=== PATIENT | female | born 1965 | race Asian ===

== ENCOUNTER 2016-03-19 02:03 | Emergency (ER) | payer OTHER ==
[2016-03-19 02:17] VITALS: BP 127/87; PULSE 79; TEMP 97.7; BMI 32.3
[2016-03-19] MEDS ORDERED: diazePAM 5 MG TABLET PO ONE (02:51)
[2016-03-19] MEDS ORDERED: KETOROLAC TROMETHAMINE 60 MG/2 ML VIAL IM ONE (02:51)
[2016-03-19] MEDS ORDERED: KETOROLAC TROMETHAMINE 60 MG/2 ML VIAL ONE (03:05)
[2016-03-19] MEDS ORDERED: diazePAM 5 MG TABLET ONE (03:06)
--- NOTE | 2016-03-19 03:40 | PDOC ---
History of Present Illness - General Chief Complaint: Back Pain Stated Complaint: BACK PAIN,LEG PAIN Time Seen by Provider: 03/19/16 02:09 - History of Present Illness Initial Comments: 03/19/16 03:40 CHIEF COMPLAINT: back pain, leg pain HISTORY OF PRESENT ILLNESS: 50 yo F with history of HTN and disc herniation ( 1.5 years ago) presents to ED with back pain radiating down to R leg. The increased pain began a month ago and became more severe today. Patient took 600 mg ibuprofen at 10 pm with no relief. She states that the pain is worse than usual because it is usually relived by taking ibuprofen. She was seen by an orthopedist 1.5 years ago but was not given any medications and "only sent to therapy." She denies any loss of sensation to lower extremities or loss of bowel or bladder function. No recent travel or sick contacts. PAST MEDICAL HISTORY: as per HPI SOCIAL HISTORY: Lives at home with daughter. Denies tobacco, alcohol, illicit drug use. ALLERGIES: No known drug allergies REVIEW OF SYSTEMS General/Constitutional: Denies fever or chills. Denies weakness, weight change. HEENT: Denies change in vision. Denies ear pain or discharge. Denies sore throat. Cardiovascular: Denies chest pain or shortness of breath. Respiratory: Denies cough, wheezing, or hemoptysis. Gastrointestinal: Denies nausea, vomiting, diarrhea or constipation. Denies rectal bleeding. Genitourinary: Denies dysuria, frequency, or change in urination. Musculoskeletal: Denies joint or muscle swelling or pain. Denies neck or back pain. Skin and breasts: Denies rash or easy bruising. Neurologic: Denies headache, vertigo, loss of consciousness, or loss of sensation. PHYSICAL EXAM General Appearance: Well-appearing, appropriately dressed. No apparent distress , no intoxication. HEENT: EOMI, PERRLA, normal ENT inspection, normal voice, TMs normal, pharynx normal. No conjunctival pallor. No photophobia, scleral icterus. Neck: No midline tenderness to cervical spine. Supple. Trachea midline. No tenderness, rigidity, carotid bruit, stridor, lymphadenopathy, or thyromegaly. Respiratory/Chest: Lungs CTAB. Cardiovascular: RRR. S1, S2. Vascular Pulses: Dorsalis-Pedis (R): 2+, Dorsalis-Pedis (L): 2+ Gastrointestinal/Abdominal: Normal bowel sounds. Abdomen soft, non-distended. No tenderness or rebound tenderness. No organomegaly, pulsatile mass, guarding , hernia, hepatomegaly, splenomegaly. Lymphatic: No adenopathy, tenderness. Musculoskeletal/Extremities: Tenderness to lumbar spine radiating to R hip and leg. Positive straight leg test. No saddle anesthesia. Sensory discrimination intact bilaterally. Pulses equal bilaterally. No midline tenderness to thoracic spine. Normal inspection. FROM of all extremities, normal capillary refill. Pelvis Stable. No CVA tenderness. No tenderness to extremities, pedal edema, swelling, erythema or deformity. Integumentary: Appropriate color, dry, warm. No cyanosis, erythema, jaundice or rash Neurologic: residential driver II-XII intact. Fully oriented, alert. Appropriate mood/affect. Motor strength 5/5. No appreciable EOM palsy, facial droop or sensory deficit. Past History - Past Medical History Allergies/Adverse Reactions: Allergies Allergy/AdvReac Type Severity Reaction Status Date / Time No Known Allergies Allergy Verified 03/19/16 02:14 Home Medications: Ambulatory Orders Cyclobenzaprine HCl [Flexeril -] 10 mg PO HS #7 tablet 03/19/16 Naproxen 250 mg PO BID #14 tablet 03/19/16 HTN: Yes - Surgical History Appendectomy: Yes - Immunization History Immunization Up to Date: Yes - Psycho/Social/Smoking Cessation Hx Anxiety: No Suicidal Ideation: No Smoking History: Never smoked Have you smoked in the past 12 months: No Number of Cigarettes Smoked Daily: 0 Cigars Per Day: 0 Information on smoking cessation initiated: No Hx Alcohol Use: No Drug/Substance Use Hx: No *Physical Exam - Vital Signs Last Vital Signs Temp Pulse Resp BP Pulse Ox 97.7 F 79 20 127/87 100 03/19/16 02:14 03/19/16 02:14 03/19/16 02:14 03/19/16 02:14 03/19/16 02:14 ED Treatment Course - Medications Given in the ED: ED Medications Discontinued Medications Generic Name Dose Route Start Last Admin Trade Name Freq PRN Reason Stop Dose Admin Diazepam 5 mg 03/19/16 02:51 03/19/16 03:11 Valium - PO 03/19/16 02:52 5 mg ONCE ONE Administration Ketorolac Tromethamine 60 mg 03/19/16 02:51 03/19/16 03:11 Toradol Injection - IM 03/19/16 02:52 60 mg ONCE ONE Administration Medical Decision Making - Medical Decision Making 03/19/16 03:51 50 yo F with hx of HTN and disc herniation presents to ED with lower back pain radiating to R leg. -60 mg Toradol IV -5 mg Valium po, patient's daughter will be driving her home. Patient reassessed, she is able to sit up comfortably at this time and states her pain is relieved. -10 mg flexeril po qhs, 250 mg po bid sent to pharmacy Advised patient to follow up with orthopedics and of signs and symptoms for return to ED. Patient verbalized understandnig and agrees to plan. *DC/Admit/Observation/Transfer Diagnosis at time of Disposition: Lower back pain Qualifiers: Chronicity: acute Back pain laterality: right Sciatica presence: with sciatica Sciatica laterality: sciatica of right side Qualified Code(s): M54.41 - Lumbago with sciatica, right side - Discharge Dispostion Admit: No - Prescriptions Prescriptions: Cyclobenzaprine HCl [Flexeril -] 10 mg PO HS #7 tablet Naproxen 250 mg PO BID #14 tablet - Referrals Referrals: Kevin Giraldo MD [Staff Physician] - - Patient Instructions Printed Discharge Instructions: DI for Back Pain With Sciatica Additional Instructions: Please take medication as prescribed; as discussed, do NOT operate any vehicles or machinery while taking Flexeril (cyclobenzaprine). Please follow up with orthopedics by the end of this week. If you experience any severe pain unrelieved by medication, loss of bowel or bladder function, loss of sensation to your lower extremities, numbness, tingling, or any new or worsening symptom, please return to the ER.
== END 2016-03-19 03:55 | disposition home or self-care (01) ==
LOC: JER 02:03
PROC: 3E0233Z Introduction of Anti-inflammatory into Muscle, Percutaneous Approach (ICD-10-PCS; principal; 2016-03-19)
DX: M54.41 Lumbago with sciatica, right side (principal); I10 Essential (primary) hypertension; M51.27 Other intervertebral disc displacement, lumbosacral region
CPT/HCPCS: 96372; 99282-25

== ENCOUNTER 2016-03-30 18:07 | Emergency (ER) | payer OTHER ==
[2016-03-30 18:13] VITALS: BMI 32.3
--- NOTE | 2016-03-30 19:25 | PDOC ---
History of Present Illness - General History Source: Patient Exam Limitations: No Limitations - History of Present Illness Initial Comments: 03/30/16 19:49 The patient is a 50 year old female with a significant past medical history of hypertension and disk herniation who presents to the ED with ongoing back pain. Patient notes that she developed the pain 2 years ago from a herniated disk. She completed therapy for a year which alleviated her symptoms and was able to manage pain with flexeril. Since, she finished her therapy her symptoms have returned and she is not experiencing pain that is no longer alleviated by her medication. She reports back pain that is radiating down her legs bilaterally. She has difficulty sleeping and ambulating. She reports normal PO intake. She reports urinary output and bowel movement. As per daughter, the patient has an appointment 04/02 with a specialist for her problem. Patient had an MRI on 03/26 and notes that her pain has worsened since. As per daughter the patient is more anxious than usual. She reports recent travel to [place] 2 months ago. She denies fever, chills, nausea, vomiting, diarrhea or constipation. <Chante Moore - Last Filed: 03/30/16 22:23> <Caitlin Farrell - Last Filed: 03/31/16 03:48> - General Chief Complaint: Pain Stated Complaint: BACK PAIN/HIP PAIN/LEG PAIN Time Seen by Provider: 03/30/16 19:16 Past History <Chante Moore - Last Filed: 03/30/16 22:23> - Past Medical History HTN: Yes Other medical history: BACK DISC PROBLEMS - Surgical History Appendectomy: Yes - Immunization History Immunization Up to Date: Yes - Psycho/Social/Smoking Cessation Hx Anxiety: No Suicidal Ideation: No Smoking History: Never smoked Have you smoked in the past 12 months: No Number of Cigarettes Smoked Daily: 0 Cigars Per Day: 0 Hx Alcohol Use: No Drug/Substance Use Hx: No Substance Use Type: None <Caitlin Farrell - Last Filed: 03/31/16 03:48> - Past Medical History Allergies/Adverse Reactions: Allergies Allergy/AdvReac Type Severity Reaction Status Date / Time No Known Allergies Allergy Verified 03/30/16 18:14 Home Medications: Ambulatory Orders Cyclobenzaprine HCl [Flexeril -] 10 mg PO HS #7 tablet 03/19/16 Naproxen 250 mg PO BID #14 tablet 03/19/16 Review of Systems - Review of Systems Able to Perform ROS?: Yes Comments:: 03/30/16 19:50 GENERAL/CONSTITUTIONAL: No fever or chills. No weakness. HEAD, EYES, EARS, NOSE AND THROAT: No change in vision. No ear pain or discharge. No sore throat. CARDIOVASCULAR: No chest pain or shortness of breath. RESPIRATORY: No cough, wheezing, or hemoptysis. GASTROINTESTINAL: No nausea, vomiting, diarrhea or constipation. GENITOURINARY: No dysuria, frequency, or change in urination. MUSCULOSKELETAL: +back pain. No joint or muscle swelling or pain. No neck. SKIN: No rash NEUROLOGIC: No headache, vertigo, loss of consciousness, or change in strength/ sensation. ENDOCRINE: No increased thirst. No abnormal weight change. HEMATOLOGIC/LYMPHATIC: No anemia, easy bleeding, or history of blood clots. ALLERGIC/IMMUNOLOGIC: No hives or skin allergy. <Chante Moore - Last Filed: 03/30/16 22:23> *Physical Exam - Vital Signs Last Vital Signs Temp Pulse Resp BP Pulse Ox 97.6 F 91 H 20 133/89 98 03/30/16 18:09 03/30/16 18:09 03/30/16 18:09 03/30/16 18:09 03/30/16 18:09 - Physical Exam Comments: 03/30/16 19:50 GENERAL: Awake, alert, and fully oriented, in no acute distress HEAD: No signs of trauma EYES: PERRLA, EOMI, sclera anicteric, conjunctiva clear ENT: Auricles normal inspection, hearing grossly normal, nares patent, oropharynx clear without exudates. Moist mucosa NECK: Normal ROM, supple, no lymphadenopathy, JVD, or masses LUNGS: Breath sounds equal, clear to auscultation bilaterally. No wheezes, and no crackles HEART: Regular rate and rhythm, normal S1 and S2, no murmurs, rubs or gallops ABDOMEN: Soft, nontender, normoactive bowel sounds. No guarding, no rebound. No masses EXTREMITIES: + right leg straight leg test 70 degrees, +left leg straight leg test 45 degrees limited ROM in LE secondary to pain. No edema. No clubbing or cyanosis. No cords, erythema, or tenderness NEUROLOGICAL: Cranial nerves II through XII grossly intact. Normal speech. SKIN: Warm, Dry, normal turgor, no rashes or lesions noted. <Chante Moore - Last Filed: 03/30/16 22:23> - Vital Signs Last Vital Signs Temp Pulse Resp BP Pulse Ox 97.6 F 91 H 20 133/89 98 03/30/16 18:09 03/30/16 18:09 03/30/16 18:09 03/30/16 18:09 03/30/16 18:09 <Caitlin Farrell - Last Filed: 03/31/16 03:48> ED Treatment Course - RADIOLOGY Radiology Studies Ordered: 03/30/16 22:23 THIS IS A PRELIMINARY REPORT FROM [facility] EXAM: CT lumbar spine noncontrast COMPARISON: Not provided FINDINGS: There is no fracture or subluxation Bony alignment of the lumbar spine is normal There is straightening of the normal lumbar lordosis possibly related to positioning or spasm The vertebral body heights and disc spaces are preserved Sclerotic changes in the inferior endplate of L4, possibly reactive with additional considerations including discitis and blastic metastatic lesion. There is a large posterior annular disc bulge/herniation at L4/L5 with severe central canal stenosis There is a posterior disc osteophyte complex at L2/L3 causing mild central canal stenosis The paraspinal soft tissues are unremarkable THIS DOCUMENT HAS BEEN ELECTRONICALLY SIGNED Blayne Bernard MD <Chante Moore - Last Filed: 03/30/16 22:23> Medical Decision Making - Medical Decision Making 03/31/16 03:42 Pt comes with chronic back pain. SHe has known disk disease in her lumbar spine. SHe states that she visits ERs regularly, and that she had an MRI last week in preparation to see the neurologists and back surgeons at [facility]. Pt states that since last week her back pain is getting worse. Though she has pain but no weakness in the legs, she has no incontinence or urine or stool. Pt states that the motrin and muscle relaxants are not helping her pain. She wants something strong. Her daughter states that she is also very anxious. Pt was treated with ativan PO, morphine and percocet in the ER. Ct scan of the L spine shows only spinal stenosis at L4,L5 and she is stable for discharge. SHe will follow with her surgeons and docs at [facility] on Thursday (in 3 days) 03/31/16 03:48 Patient Name: Elvi Hall THIS IS A PRELIMINARY REPORT FROM [facility] EXAM: CT lumbar spine noncontrast IMAGES: 280 EXAM DATE AND TIME: 2016-03-30 21:04:09.0 REASON FOR EXAM: Worsening pain COMPARISON: Not provided FINDINGS: There is no fracture or subluxation Bony alignment of the lumbar spine is normal There is straightening of the normal lumbar lordosis possibly related to positioning or spasm The vertebral body heights and disc spaces are preserved Sclerotic changes in the inferior endplate of L4, possibly reactive with additional considerations including discitis and blastic metastatic lesion. There is a large posterior annular disc bulge/herniation at L4/L5 with severe central canal stenosis There is a posterior disc osteophyte complex at L2/L3 causing mild central canal stenosis The paraspinal soft tissues are unremarkable THIS DOCUMENT HAS BEEN ELECTRONICALLY SIGNED <Caitlin Farrell - Last Filed: 03/31/16 03:48> *DC/Admit/Observation/Transfer - Attestations Scribe Attestion: 03/30/16 19:51 Documentation prepared by BETTIE Lawson, acting as site medical director for Caitlin Farrell MD. <Chante Moore - Last Filed: 03/30/16 22:23> - Discharge Dispostion Admit: No <Caitlin Farrell - Last Filed: 03/31/16 03:48> Diagnosis at time of Disposition: Spinal stenosis at L4-L5 level - Discharge Dispostion Disposition: HOME Condition at time of disposition: Improved - Referrals Referrals: Rosalio Dean MD [Primary Care Provider] - - Patient Instructions Printed Discharge Instructions: Spinal Stenosis
[2016-03-30] MEDS ORDERED: KETOROLAC TROMETHAMINE 60 MG/2 ML VIAL IM ONE (19:45)
[2016-03-30] MEDS ORDERED: LORazepam 1 MG TABLET PO ONE (19:46)
[2016-03-30] MEDS ORDERED: OXYCODONE/APAP 5/325MG COMBO TABLET ONE (19:48)
[2016-03-30] MEDS: OXYCODONE/APAP 5/325MG COMBO TABLET PO ONE ×2 (19:53→20:14)
[2016-03-30] MEDS ORDERED: OXYCODONE/APAP 5/325MG COMBO TABLET PO ONE (19:55)
[2016-03-30] MEDS ORDERED: KETOROLAC TROMETHAMINE 60 MG/2 ML VIAL ONE (19:56)
[2016-03-30] MEDS ORDERED: LORazepam 0.5 MG TABLET ONE (19:56)
[2016-03-30 20:09] LABS: URINE APPEARANCE CLEAR; URINE BILIRUBIN NEGATIVE (NEGATIVE); URINE BLOOD NEGATIVE (NEGATIVE); URINE COLOR STRAW; URINE GLUCOSE (UA) NEGATIVE (NEGATIVE); URINE KETONE NEGATIVE (NEGATIVE); URINE LEUK ESTERASE NEGATIVE (NEGATIVE); URINE NITRITE NEGATIVE (NEGATIVE); URINE PROTEIN NEGATIVE (NEGATIVE); URINE UROBILINOGEN NEGATIVE E.U./dl (0.2-1.0)
[2016-03-30 22:59] VITALS: BP 131/81; PULSE 69; TEMP 97.1
== END 2016-03-30 22:59 | disposition home or self-care (01) ==
LOC: JER 18:07
PROC: 3E0233Z Introduction of Anti-inflammatory into Muscle, Percutaneous Approach (ICD-10-PCS; principal; 2016-03-30)
DX: M48.06 Spinal stenosis, lumbar region (principal); I10 Essential (primary) hypertension
CPT/HCPCS: 72131-TC; 81003; 84703; 96372; 99282-25

== ENCOUNTER 2016-04-07 21:27 | Emergency (ER) | payer OTHER ==
[2016-04-07 21:48] VITALS: BP 130/74; PULSE 120; TEMP 98.5; BMI 35.4
--- NOTE | 2016-04-07 22:18 | PDOC ---
History of Present Illness - General Chief Complaint: Pain Stated Complaint: BACK PAIN/ELBOW PAIN Time Seen by Provider: 04/07/16 22:00 History Source: Patient Exam Limitations: No Limitations - History of Present Illness Initial Comments: 04/07/16 22:11 Chief complaint: Left elbow pain that started suddenly last night and radiates up arm and also pain to left posterior shoulder area History of present illness: The patient is a 50 year old female with a significant past medical history of hypertension and disk herniation lumbar spine who presents to the ED with left elbow pain radiates up left arm to left shoulder. Patient reports that she cannot straighten the elbow due to pain and left elbow area. Patient took Percocet without relief of pain. Patient denies any fall or any injury to area. Patient denies any neck pain. Patient denies any numbness of her left arm patient reports the pain is a throbbing sensation and is currently a 10 out of 10. Patient denies any heavy lifting. Denies any chest discomfort or any shortness of breath. Pt. denies any nausea or abdominal pain. She reports recent travel to [place] 2 months ago. 04/07/16 22:22 04/07/16 22:56 04/07/16 22:57 04/07/16 23:06 Occurred: reports: other (last night worsened started in left elbow ) Severity: reports: severe Pain Location: reports: upper extremity (left elbow radiated up left arm to left shoulder area ) Method of Injury: Yes: unknown Modifying Factors: improves with: None Loss of Consciousness: no loss of consciousness Associated Symptoms (Fall): denies symptoms Past History - Past Medical History Allergies/Adverse Reactions: Allergies Allergy/AdvReac Type Severity Reaction Status Date / Time No Known Allergies Allergy Verified 04/07/16 21:44 Home Medications: Ambulatory Orders Gabapentin [Neurontin] 100 mg PO DAILY PRN 04/07/16 Naproxen [Naprosyn -] 500 mg PO BID PRN #14 tablet 04/07/16 Oxycodone HCl/Acetaminophen [Percocet 5-325 mg Tablet] 1 tab PO Q4H PRN HTN: Yes - Surgical History Appendectomy: Yes - Immunization History Immunization Up to Date: Yes - Psycho/Social/Smoking Cessation Hx Anxiety: No Suicidal Ideation: No Smoking History: Never smoked Have you smoked in the past 12 months: No Number of Cigarettes Smoked Daily: 0 Cigars Per Day: 0 Information on smoking cessation initiated: No Hx Alcohol Use: No Drug/Substance Use Hx: No Substance Use Type: None Review of Systems - Review of Systems Able to Perform ROS?: Yes Constitutional: No: Symptoms Reported HEENTM: No: Symptoms Reported Respiratory: No: Symptoms reported Cardiac (ROS): No: Symptoms Reported ABD/GI: No: Symptoms Reported : No: Symptoms Reported Musculoskeletal: Yes: Joint Pain (left elbow pain radiates up arm to left shoulder ), Other (decreased rom left elbow ) Integumentary: No: Symptoms Reported Neurological: No: Symptoms reported *Physical Exam - Vital Signs Last Vital Signs Temp Pulse Resp BP Pulse Ox 98.5 F 120 H 14 130/74 97 04/07/16 21:46 04/07/16 21:46 04/07/16 21:46 04/07/16 21:46 04/07/16 21:46 - Physical Exam General Appearance: Yes: Appropriately Dressed Neck: negative: Tender, Decreased range of motion, Lymphadenopathy (R), Lymphadenopathy (L), Rigidity, Tender lateral, Tender midline Respiratory/Chest: positive: Lungs Clear, Normal Breath Sounds Cardiovascular: positive: Regular Rhythm, Regular Rate, S1, S2 Extremity: positive: Normal Capillary Refill, Normal Inspection, Tender (left elbow, muscle of left upper arm, left posterior shoulder area with palpation ) . negative: Normal Range of Motion (left elbow ) Integumentary: positive: Normal Color Neurologic: positive: Normal Response, Respond to painful stimul (left amr), Responsive. negative: Sensory Deficit (left arm ) Medical Decision Making - Medical Decision Making 04/07/16 22:57 The patient is a 50 year old female with a significant past medical history of hypertension and disk herniation lumbar spine who presents to the ED with left elbow pain radiates up left arm to left shoulder. Patient reports that she cannot straighten the elbow due to pain and left elbow area. Patient took Percocet without relief of pain. Patient denies any fall or any injury to area. Patient denies any neck pain. Patient denies any numbness of her left arm patient reports the pain is a throbbing sensation and is currently a 10 out of 10. Patient denies any heavy lifting. She reports recent travel to [place] 2 months ago. left elbow pain, left upper arm muscular pain MS pain left posterior shoulder area PLAN: toradol 30 mg IM Naprosyn 500 mg bid prn pain Follow up with orthopedist She was found sleeping in exam room 10-15 minutes after giving Toradol *DC/Admit/Observation/Transfer Diagnosis at time of Disposition: Left elbow pain Upper arm pain Qualifiers: Laterality: left Qualified Code(s): M79.622 - Pain in left upper arm Left shoulder pain Qualifiers: Chronicity: acute Qualified Code(s): M25.512 - Pain in left shoulder - Discharge Dispostion Disposition: HOME Condition at time of disposition: Stable - Prescriptions Prescriptions: Naproxen [Naprosyn -] 500 mg PO BID PRN #14 tablet PRN Reason: Pain - Referrals Referrals: Rosalio Dean MD [Primary Care Provider] - Carmine Jesus MD [Staff Physician] - - Patient Instructions Additional Instructions: Follow up with orthopedist tomorrow Elevate her left arm on pillow if arm feels better Avoid any strenuous activities using left arm Return to emergency room if symptoms worsen Patient voiced understanding of discharge instructions all questions were answered
[2016-04-07] MEDS ORDERED: KETOROLAC TROMETHAMINE 30 MG/1 ML VIAL IM ONE (22:21)
[2016-04-07] MEDS ORDERED: KETOROLAC TROMETHAMINE 30 MG/1 ML VIAL ONE (22:24)
== END 2016-04-07 23:17 | disposition home or self-care (01) ==
LOC: JERFT 21:27
PROC: 3E0233Z Introduction of Anti-inflammatory into Muscle, Percutaneous Approach (ICD-10-PCS; principal; 2016-04-07)
DX: M25.522 Pain in left elbow (principal); I10 Essential (primary) hypertension
CPT/HCPCS: 96372; 99281-25

== ENCOUNTER 2016-06-09 18:59 | Emergency (ER) | payer OTHER ==
[2016-06-09 19:10] VITALS: BP 136/90; PULSE 88; TEMP 98.3; BMI 35.4
--- NOTE | 2016-06-09 19:38 | PDOC ---
History of Present Illness - General Chief Complaint: Pain Stated Complaint: RT LEG PAIN Time Seen by Provider: 06/09/16 19:38 History Source: Patient - History of Present Illness Initial Comments: 06/09/16 21:02 Chief complaint: Buttocks and thigh pain Patient 51-year-old female with a history of anemia disks, sciatica who came to the ER complaining of 2 days of right buttocks and thigh pain. No numbness or tingling. But pain is so much that she can't walk. No dysuria, incontinence or saddle anesthesia. Patient has been treated for this before. Patient states that she took her regular meds which include gabapentin for pain. GENERAL/CONSTITUTIONAL: No fever, weakness. dizziness HEAD, EYES, EARS, NOSE AND THROAT: No change in vision. No ear pain or discharge. No sore throat. CARDIOVASCULAR: No chest pain RESPIRATORY: No shortness of breath or cough GASTROINTESTINAL: No pain, nausea, vomiting, diarrhea or constipation GENITOURINARY: No dysuria MUSCULOSKELETAL: No neck or back pain, + buttocks and hip pain SKIN: No rash NEUROLOGIC: No headache, vertigo, loss of consciousness, or loss of sensation. GENERAL: The patient is awake, alert, and fully oriented, in no acute distress. HEAD: Normal with no signs of trauma. EYES: Pupils equal, round and reactive to light, sclera anicteric, conjunctiva clear. ENT: pharynx: no erythema, no exudate, uvula midline NECK: supple CHEST: clear, nontender, rr ABD: soft, nontender Back: Mild lower lumbar and SI tenderness, EXTREMITIES: no swelling or tenderness to the hip or thigh area, no calf tenderness or swelling, or discoloration, full range of motion, neurovascular intact, rest of extremities, normal range of motion, no edema. NEUROLOGICAL: Normal speech, normal gait. SKIN: Warm, Dry Past History - Past Medical History Allergies/Adverse Reactions: Allergies Allergy/AdvReac Type Severity Reaction Status Date / Time No Known Allergies Allergy Verified 06/09/16 19:07 Home Medications: Ambulatory Orders Gabapentin [Neurontin] 100 mg PO DAILY PRN 04/07/16 Chlorthalidone 25 mg PO ASDIR 06/09/16 Cyclobenzaprine HCl [Flexeril 10 mg] 10 mg PO ASDIR 06/09/16 Naproxen [Naprosyn -] 500 mg PO BID #10 tablet 06/09/16 Oxycodone HCl/Acetaminophen [Percocet 5-325 mg Tablet] 1 tab PO Q6H #20 tablet MDD 4 06/09/16 HTN: Yes - Surgical History Appendectomy: Yes - Immunization History Immunization Up to Date: Yes - Psycho/Social/Smoking Cessation Hx Anxiety: No Suicidal Ideation: No Smoking History: Never smoked Have you smoked in the past 12 months: No Number of Cigarettes Smoked Daily: 0 Cigars Per Day: 0 Information on smoking cessation initiated: No Hx Alcohol Use: No Drug/Substance Use Hx: No Substance Use Type: None *Physical Exam - Vital Signs Last Vital Signs Temp Pulse Resp BP Pulse Ox 98.3 F 88 18 136/90 100 06/09/16 19:08 06/09/16 19:08 06/09/16 19:08 06/09/16 19:08 06/09/16 19:08 Medical Decision Making - Medical Decision Making 06/09/16 21:05 Showed chronic back issues, worsening pain, no dysuria, incontinence, saddle anesthesia or numbness. Patient has localized pain to the right buttocks and hip , thigh area consistent with sciatica. She will be treated for pain. Patient can move hip joint without difficulty. 06/09/16 21:15 Patient feels better, wants to go home, has a cane at home. pt ambulatory on discharge *DC/Admit/Observation/Transfer Diagnosis at time of Disposition: Sciatic leg pain - Discharge Dispostion Disposition: HOME Condition at time of disposition: Stable - Prescriptions Prescriptions: Naproxen [Naprosyn -] 500 mg PO BID #10 tablet Oxycodone HCl/Acetaminophen [Percocet 5-325 mg Tablet] 1 tab PO Q6H #20 tablet MDD 4 - Referrals Referrals: Rosalio Dean MD [Primary Care Provider] - - Patient Instructions Printed Discharge Instructions: DI for Sciatica Additional Instructions: No heavy lifting or bending Apply ice to the area 20 minutes every 2 hours for the next 2 days Continue taking naprosyn mg every 12 hours for pain. If still in pain he can also take Percocet one tablet every 6 hours. Return to the nearest ER if numbness, weakness, severe pain, problems with urinating or having bowel movements. Call orthopedist today for an appointment for further evaluation
[2016-06-09] MEDS ORDERED: KETOROLAC TROMETHAMINE 30 MG/1 ML VIAL IM ONE (20:21)
[2016-06-09] MEDS ORDERED: OXYCODONE/APAP 5/325MG COMBO TABLET PO ONE (20:21)
[2016-06-09] MEDS ORDERED: OXYCODONE/APAP 5/325MG COMBO TABLET ONE (20:26)
[2016-06-09] MEDS ORDERED: KETOROLAC TROMETHAMINE 30 MG/1 ML VIAL ONE (20:27)
== END 2016-06-09 21:36 | disposition home or self-care (01) ==
LOC: JERFT 18:59
PROC: 3E0233Z Introduction of Anti-inflammatory into Muscle, Percutaneous Approach (ICD-10-PCS; principal; 2016-06-09)
DX: M54.41 Lumbago with sciatica, right side (principal)
CPT/HCPCS: 96372; 99281-25

== ENCOUNTER 2019-04-09 20:50 | Emergency (ER) | payer OTHER ==
[2019-04-09 21:05] VITALS: BP 158/100; PULSE 87; TEMP 98.4; BMI 32.3
--- NOTE | 2019-04-09 21:12 | PDOC ---
Documentation entered by Porter Xiong SCRIBE, acting as scribe for Gifty Irby MD. Gifty Irby MD: This documentation has been prepared by the Tyrese balderrama Angel, SCRIBE, under my direction and personally reviewed by me in its entirety. I confirm that the documentation accurately reflects all work, treatment, procedures, and medical decision making performed by me. History of Present Illness - General Chief Complaint: Toothache Stated Complaint: TOOTHACHE Time Seen by Provider: 04/09/19 20:53 History Source: Family Exam Limitations: Language Barrier - History of Present Illness Initial Comments: 04/09/19 21:08 Assessment and plan: This is a 53-year-old female with a dental carry on the left second premolar tooth. Patient has had the dental caries for some time was told she needed a root canal but has delayed getting the root canal up to the point now that she is having pain in the tooth. There is no evidence of any periodontal infection abscess or complication. Patient does have a private dentist she can see on Thursday. Patient given a shot of Toradol and a prescription for naproxen sent to her pharmacy. Patient discharged home with her daughter. 04/09/19 21:18 The patient is a 53 year old female with no significant past medical history who presents to the ED with a toothache for one week. Patient reports throbbing in the left lower second premolar. The patient also reports that the left lower second premolar has a cavity and was told by the dentist that she needs a root canal. Denies fever/chills. Denies any other symptoms. PAST MEDICAL HISTORY: no significant history PAST SURGICAL HISTORY: no significant history FAMILY HISTORY: no pertinent history SOCIAL HISTORY: Pt lives with family and is employed. MEDICATIONS: reviewed ALLERGIES: As per nursing notes General: No fevers or chills, no weakness, no weight loss HEENT: + Tooth pain. No change in vision. No sore throat,. No ear pain Cardiovascular: No chest pain or shortness of breath Respiratory:No cough, or wheezing. Gastrointestinal: no nausea, vomiting, diarrhea or constipation, No rectal bleeding Genitourinary: No dysuria, hematuria, or frequency Musculoskeletal: No joint or muscle pain or swelling Neurologic: No headache, vertigo, dizziness or loss of consciousness Psychiatric: no depression Skin: No rashes or easy bruising Endocrine: no increased thirst or abnormal weight change Allergic: no skin or latex allergy All other systems reviewed and normal GENERAL: The patient is awake, alert, and fully oriented, in no acute distress. HEAD: Normal with no signs of trauma. ORAL: + Dental carry left lower 2nd premolar. No periodontal tissue, no swelling , erythema, tenderness of the gums or buccal tissues. EYES: Pupils equal, round and reactive to light, extraocular movements intact, sclera anicteric, conjunctiva clear. EXTREMITIES: Normal range of motion, no edema. NEUROLOGICAL: Normal speech, normal gait. PSYCH: Normal mood, normal affect. SKIN: Warm, Dry, normal turgor, no rashes or lesions noted. Past History - Past Medical History Allergies/Adverse Reactions: Allergies Allergy/AdvReac Type Severity Reaction Status Date / Time No Known Allergies Allergy Verified 04/09/19 20:52 Home Medications: Ambulatory Orders Chlorthalidone 25 mg PO ASDIR 06/09/16 Naproxen 500 mg PO BID #14 tablet 04/09/19 HTN: Yes - Surgical History Appendectomy: Yes - Immunization History Immunization Up to Date: Yes - Psycho Social/Smoking Cessation Hx Smoking History: Never smoked Have you smoked in the past 12 months: No Number of Cigarettes Smoked Daily: 0 Cigars Per Day: 0 Hx Alcohol Use: No Drug/Substance Use Hx: No Substance Use Type: None *Physical Exam - Vital Signs Last Vital Signs Temp Pulse Resp BP Pulse Ox 98.4 F 87 16 158/100 99 04/09/19 20:51 04/09/19 20:51 04/09/19 20:51 04/09/19 20:51 04/09/19 20:51 Discharge - Discharge Information Problems reviewed: Yes Clinical Impression/Diagnosis: Dentalgia, Dental caries Condition: Good Disposition: HOME - Admission No - Additional Discharge Information Prescriptions: Naproxen 500 mg PO BID #14 tablet - Follow up/Referral - Patient Discharge Instructions Patient Printed Discharge Instructions: DI for Dental Pain Additional Instructions: Get the prescription filled for naproxen for the pain take naproxen 1 tablets twice a day as needed for pain take with food do not take on an empty stomach. Call your dentist Thursday morning and get an appointment for follow-up as soon as possible. Return to the emergency department immediately with ANY new, persistent or worsening symptoms. Continue any medications as previously prescribed by your physician. You should follow up with your primary doctor as soon as possible regarding today's emergency department visit. . Please make sure your doctor reviews the results of your emergency evaluation. Thank you for coming to the Emergency Department today for your care. It was a pleasure to see you today. Please note that your evaluation is INCOMPLETE until you follow-up with your doctor. - Post Discharge Activity
[2019-04-09] MEDS ORDERED: KETOROLAC TROMETHAMINE 60 MG/2 ML VIAL IM ONE (21:13)
[2019-04-09] MEDS ORDERED: KETOROLAC TROMETHAMINE 60 MG/2 ML VIAL ONE (21:13)
== END 2019-04-09 21:21 | disposition home or self-care (01) ==
LOC: SUPCPDRO 20:50 → FER 20:50
PROC: 3E0233Z Introduction of Anti-inflammatory into Muscle, Percutaneous Approach (ICD-10-PCS; principal; 2019-04-09)
DX: K08.89 Other specified disorders of teeth and supporting structures (principal)
CPT/HCPCS: 99281-25